=== PATIENT | female | born 1930 | race Caucasian/White ===

== ENCOUNTER 2016-09-27 11:22 | Emergency (ER) | payer OTHER, MEDICARE ==
[~2016-09-27] VITALS: Ht 154.9 cm; Wt 49.9 kg
[~2016-09-27 11:22] MED LIST: ACEPHEN650 MG PR; ASPIRIN CHILDRE81 MG PO; ATIVAN 0.5MG T0.5 MG PO; AUGMENTIN 875875 MG PO; BENICAR HCT1 TAB PO; BISAC-EVAC10 MG PR; CRESTOR 10MG10 MG PO; DOXAZOSIN MESYLA4 MG PO; ESCITALOPRAM5 MG PO; FLEET ENEMA 131 UNIT RC; FUROSEMIDE20 MG PO; LABETALOL HYDR300 MG PO; LISINOPRIL10 MG PO; LORAZEPAM0.5 MG PO; MAPAP325 MG PO; METOPROLOL TAR100 MG PO; MILK OF MAGNESI30 ML PO; NAMENDA PO; NAMENDA XR7 MG PO; NORVASC 5MG TAB5 MG PO; OMEPRAZOLE20 MG PO; ROBITUSSIN W/CO10 ML PO; ROZEREM8 MG PO; TRANDATE-NORMO200 MG PO; VERAPAMIL HYDR240 MG PO; VITAMIN D1000 IU PO
--- NOTE | 2016-09-27 12:05 | ED HAND/WRIST INJURY COMPLAINT ---
History of Present Illness General Chief Complaint: Upper Extremity Problem Stated Complaint: LFT HAND SKIN TEAR Source: patient, old records, EMS, W10 Exam Limitations: dementia Vital Signs & Intake/Output Vital Signs & Intake/Output Vital Signs Date Time Temp Pulse Resp B/P Pulse O2 O2 Flow FiO2 Ox Delivery Rate 09/27 1408 74 18 108/70 99 09/27 1132 98.4 84 20 110/60 100 Room Air Allergies Coded Allergies: NO KNOWN ALLERGIES (01/05/15) Reconcile Medications Acetaminophen (Acephen) 650 MG SUPP.RECT 1 SUPP WY Q4H PRN PAIN/FEVER ( Reported) Acetaminophen (Mapap) 325 MG TABLET 2 TAB PO Q4H PRN PAIN/TEMP (Reported) Amlodipine (Norvasc 5MG Tab) 5 MG TABLET 1 TAB PO DAILY BLOOD PRESSURE ( Reported) Start when SBP > 160 Amoxicillin/Clavulanate Potass (Amox-Clav 875-125 MG Tablet) 875 MG TAB 1 TAB PO BID aspiration pneumonia Aspirin (Children's Aspirin) 81 MG TAB.CHEW 1 TAB PO DAILY HEART HEALTH ( Reported) Bisacodyl (Bisac-Evac) 10 MG SUPP.RECT 1 SUPP WY PRN CONSTIPATION IF MOM INEFFECTIV (Reported) Cholecalciferol (Vitamin D3) 1,000 UNIT TABLET 2 TAB PO DAILY BONE STRENGTH Fleet Enema (Fleet Enema 135 Ml) 19 GRAM-7 GRAM/118 ML ENEMA 1 E RC ONCE PRN CONSTIPATION (Reported) Lorazepam (Ativan 0.5MG Tab) 0.5 MG TABLET 1 TAB PO TID PRN AGITAT/ HALLUCINATION/IRRITABIL Magnesium Hydroxide (Milk Of Magnesia 30ML) 400 MG/5 ML ORAL.SUSP 30 ML PO DAILY PRN CONSTIPATION (Reported) MEMANTINE HCL (Namenda XR) 7 MG CAP.SPR.24 1 CAP PO DAILY DEMENTIA (Reported) Omeprazole 20 MG CAPSULE.DR 1 CAP PO DAILY GERD (Reported) Ramelteon (Rozerem) 8 MG TABLET 1 TAB PO AT BEDTIME DEMENTIA Robitussin AC (Guaifenesin-Codeine Syrup) 200 MG-20 MG/10 ML LIQUID 10 ML PO 4 TIMES/DAY PRN COUGH (Reported) Rosuvastatin Calcium (Crestor) 10 MG TABLET 1 TAB PO DAILY CHOLESTEROL ( Reported) Triage Note: BIBA FROM [facility], HAS SKIN TEAR TO TOP PF LEFT HAND, OCCURRED 3 DAYS AGO, AFTER BUMPING HAND AGAINST A WALL, C-SHAPED TEAR NOTED WITH MINIMAL BLEEDING. ALERT, OFFERS NO COMPLAINTS. Triage Nurses Notes Reviewed? yes HPI: Patient sent in from her extended care facility for evaluation of bleeding to her left hand. On Saturday patient caught her hand between a chair and a railing and developed a little skin tear. The nursing facility applied Steri-Strips however the patient continues to have a slow bleed from the sinuses shows sent in for evaluation. Patient has dementia and is unable to provide any history. Past History Travel History Traveled to [place] past 21 day No Medical History Any Pertinent Medical History? see below for history Neurological: dementia Cardiovascular: aortic stenosis, hypertension, hyperlipidemia, syncope Gastrointestinal: GERD History of MRSA: No History of VRE: No History of CDIFF: No Pneumonia Vaccine: 07/01/14 Surgical History Surgical History: non-contributory Psychosocial History Who do you live with Patient/Self Services at Home None What is your primary language Bolivian Tobacco Use: Never used ETOH Use: denies use Family History Family History, If Any: SISTER FH: HTN (hypertension) Hx Contributory? No Review of Systems Review of Systems Constitutional: Reports: see HPI. Musculoskeletal: Reports: no symptoms. Skin: Reports: see HPI. Neurological/Psychological: Reports: see HPI. Physical Exam Physical Exam General Appearance: well developed/nourished, alert, awake Head: atraumatic, normal appearance Eyes: Bilateral: PERRL, EOMI. Cardiovascular/Respiratory: normal breath sounds, normal peripheral pulses, regular rate/rhythm, no respiratory distress Hand Left: ECCHYMOSIS TO THE DORSUM OF HER HAND AND 2 SMALL SKIN TEARS TO THE DORSAL ASPECT OF HER HAND. bLEEDING CONTROLLED. fULL RANGE OF MOTION. Hand Right: normal inspection, normal range of motion Neurologic/Tendon: normal sensation, normal motor functions Skin: SKIN TEAR TO LEFT HAND Progress Differential Diagnosis: SKIN TEAR Plan of Care: Orders Procedure Date/time Status XRY-HAND, 3 View LEFT 09/27 1204 Active Diagnostic Imaging: Viewed by Me: Radiology Read. Discussed w/RAD: Radiology Read. Radiology Impression: PATIENT: PHILIP MALDONADO PRESENT AGE: 85 PATIENT ACCOUNT NO: [id number] : [birth year] LOCATION: [facility] ORDERING PHYSICIAN: JOHNSON RANDOLPH MD SERVICE DATE: 09/27/16-5 EXAM TYPE: RAD - XRY-HAND, LEFT EXAMINATION: XR HAND, LEFT CLINICAL INFORMATION: Trauma. COMPARISON: None TECHNIQUE: AP, lateral, and oblique views of the left hand. 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 Degenerative arthritis also seen involving the joints of the hand most notable at the first interphalangeal joint, second through fifth PIP. Joints and second and third DIP joints. No acute fracture or dislocation is seen. IMPRESSION: Polyarticular degenerative changes. No acute fracture or dislocation is identified. DICTATED BY: NILE ARRIOLA MD DATE/TIME DICTATED:09/27/161299 CIVIL PROJECT ENGINEER: YARED DATE/TIME TRANSCRIBED:09/27/161299 CONFIDENTIAL, DO NOT COPY WITHOUT APPROPRIATE AUTHORIZATION. <Electronically signed in Other Vendor System> SIGNED BY: NILE ARRIOLA MD 09/27/16 1309 Departure Departure Disposition: ACUTE REHAB FACILITY Condition: Stable Clinical Impression Primary Impression: Contusion of left hand Secondary Impressions: Skin tear Referrals: RAJENDRA PIERSON DO (PCP/Family) Departure Forms: Customer Survey General Discharge Information
--- NOTE | 2016-09-27 13:05 | RADIOLOGY REPORT ---
EXAMINATION: XR HAND, LEFT CLINICAL INFORMATION: Trauma. COMPARISON: None TECHNIQUE: AP, lateral, and oblique views of the left hand. 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 Degenerative arthritis also seen involving the joints of the hand most notable at the first interphalangeal joint, second through fifth PIP. Joints and second and third DIP joints. No acute fracture or dislocation is seen. IMPRESSION: Polyarticular degenerative changes. No acute fracture or dislocation is identified.
[2016-09-27 14:08] VITALS: BP 108/70
== END 2016-09-27 14:10 ==
LOC: ERH 11:22
DX: S60.222A Contusion of left hand, initial encounter (principal); S61.412A Laceration without foreign body of left hand, initial encounter; W23.0XXA Caught, crushed, jammed, or pinched between moving objects, initial encounter; Y92.129 Unspecified place in nursing home as the place of occurrence of the external cause
CPT/HCPCS: 73130-LT